=== PATIENT | female | born 1995 | race Caucasian/White ===

== ENCOUNTER → 2017-04-27 | Outpatient (REF) | payer OTHER ==
[~2017-04-27] MED LIST: LORA-1455 PO
[2017-04-27 19:13] LABS: PLATELET COUNT, AUTOMATED 180 K/uL (150-450)
== END ==
PROVIDERS: ATTEND Nurse Practitioner Family
DX: R10.9 Unspecified abdominal pain (principal)
CPT/HCPCS: 82040; 82247; 82310; 82374; 82435; 82565; 82947; 84075; 84132; 84155; 84295; 84450; 84460; 84520; 85025

== ENCOUNTER 2017-05-02 10:57 | Emergency (ER) | payer OTHER ==
[~2017-05-02] VITALS: Ht 165.1 cm; Wt 59.0 kg
--- NOTE | 2017-05-02 10:59 | ER Report ---
History and Physical Time Seen By MD: 10:59 Hx. of Stated Complaint: Right lower quadrant pain HPI/ROS 21-year-old female sent here from urgent care has been seen 3 times in the last week at urgent care with abdominal pain it started as generalized is now migrated to right lower quadrant she has low-grade temperature is nauseated anorexia pain rated as 6 on a 0-10 scale Remainder of the 14 system rev: Yes Allergies: Coded Allergies: No Known Drug Allergies (Unverified , 05/02/17) Home Meds Active Scripts Ondansetron (ZOFRAN ODT) 4 Mg Tab.rapdis, 4 MG PO Q6H Y for NAUSEA/VOMITING, # 20 TAB.DAYO Prov:MILES NORRIS APRN-C 05/02/17 Hydrocodone Bit/Acetaminophen (NORCO 5-325 TABLET) 1 Each Tablet, 1 EACH PO Q4- 6H Y for PAIN, #30 TAB Prov:MILES NORRIS APRN-[place] 05/02/17 Ciprofloxacin Hcl (CIPROFLOXACIN HCL) 500 Mg Tablet, 500 MG PO Q12H, #6 TAB Prov:MILES NORRIS APRN-C 05/02/17 Reported Medications Omeprazole (OMEPRAZOLE) 20 Mg Capsule.dr, 1 CAP PO QDAY, CAP 05/02/17 Fluoxetine Hcl (FLUOXETINE HCL) 20 Mg Capsule, 20 MG PO QDAY, CAPSULE 05/02/17 [ Control] No Conflict Check 05/02/17 Past Medical/Surgical History Depression, anxiety, is sexually active is on oral control Hx Substance Use Disorder: No Hx Alcohol Use: Yes Family History of: Other Constitutional Vital Sign - Last 24 Hours 05/02/17 05/02/17 05/02/17 05/02/17 11:00 11:07 11:27 11:30 Temp 98.2 Pulse 69 66 Resp 16 B/P (MAP) 134/83 134/83 (100) 128/72 (90) Pulse Ox 97 98 O2 Delivery Room Air 05/02/17 05/02/17 05/02/17 05/02/17 11:57 12:00 12:30 12:35 Pulse 63 76 B/P (MAP) 120/73 (89) 129/79 (96) Pulse Ox 95 99 05/02/17 05/02/17 05/02/17 05/02/17 12:55 13:00 13:15 14:30 Pulse 63 64 B/P (MAP) 140/82 (101) 125/80 (95) Pulse Ox 96 96 05/02/17 05/02/17 05/02/17 05/02/17 15:00 15:30 15:35 15:40 Pulse 59 58 68 B/P (MAP) 124/80 (95) 129/76 (93) Pulse Ox 95 92 96 05/02/17 05/02/17 05/02/17 05/02/17 15:45 15:50 15:55 16:00 Pulse 71 84 66 89 B/P (MAP) 135/83 (100) Pulse Ox 97 97 94 97 Intake and Output 05/02/17 05/02/17 05/03/17 15:00 23:00 07:00 Intake Total 1000 ml Balance 1000 ml Physical Exam 21-year-old female alert and oriented mild distress HEENT has normocephalic/ atraumatic tympanic membranes are non-reddened throat is non-reddened neck is supple no JVD heart rate is regular no murmurs rubs or gallops lungs clear to auscultation abdomen is soft she has point tenderness right lower quadrant bowel sounds are active in all quadrants Medical Decision Making Data Points Result Diagram: 05/02/17 1115 05/02/17 1115 Laboratory Hematology Test 05/02/17 11:02 05/02/17 11:15 Urine Color Yellow Urine Clarity Slightly-cloudy Urine pH 5.0 pH (4.8-9.5) Urine Specific [place] 1.028 Urine Protein Negative mg/dL (NEGATIVE) Urine Glucose (UA) Negative mg/dL (NEGATIVE) Urine Ketones Negative mg/dL (NEGATIVE) Urine Blood Negative (NEGATIVE) Urine Nitrite Negative (NEGATIVE) Urine Bilirubin Negative (NEGATIVE) Urine Urobilinogen 4.0 mg/dL (0.2-1.9) Urine Leukocyte Esterase Small (NEGATIVE) Urine RBC 1 /HPF (0-2/HPF) Urine WBC 3 /HPF (0-5/HPF) Urine Squamous Epithelial Cells Many /LPF (</=FEW) Urine Bacteria Few /HPF (NONE-FEW) Urine Mucus Few /HPF (NONE-FEW) Red Blood Count 5.00 M/uL (4.17-5.56) Mean Corpuscular Volume 82.9 fL (80.0-96.0) Mean Corpuscular Hemoglobin 28.5 pg (26.0-33.0) Mean Corpuscular Hemoglobin Concent 34.3 g/dL (32.0-36.0) Red Cell Distribution Width 12.9 % (11.5-14.5) Mean Platelet Volume 10.6 fL (7.2-11.1) Neutrophils (%) (Auto) 64.1 % (39.4-72.5) Lymphocytes (%) (Auto) 27.0 % (17.6-49.6) Monocytes (%) (Auto) 7.1 % (4.1-12.4) Eosinophils (%) (Auto) 0.9 % (0.4-6.7) Basophils (%) (Auto) 0.9 % (0.3-1.4) Nucleated RBC Relative Count (auto) 0.0 /100WBC Neutrophils # (Auto) 3.6 K/uL (2.0-7.4) Lymphocytes # (Auto) 1.5 K/uL (1.3-3.6) Monocytes # (Auto) 0.4 K/uL (0.3-1.0) Eosinophils # (Auto) 0.0 K/uL (0.0-0.5) Basophils # (Auto) 0.0 K/uL (0.0-0.1) Nucleated RBC Absolute Count (auto) 0.00 K/uL Peripheral Blood Smear No Y/N Sodium Level 137 mmol/L (137-145) Potassium Level 4.2 mmol/L (3.5-5.0) Chloride Level 104 mmol/L (98-107) Carbon Dioxide Level 20 mmol/L (22-31) Blood Urea Nitrogen 10 mg/dl (7-18) Creatinine 1.00 mg/dl (0.52-1.04) Glomerular Filtration Rate Calc > 60.0 Random Glucose 76 mg/dl (75-110) Lactate 1.3 mmol/L (0.7-2.1) Calcium Level 9.5 mg/dl (8.4-10.2) Total Bilirubin 0.4 mg/dl (0.2-1.3) Aspartate Amino Transf (AST/SGOT) 19 U/L (0-35) Alanine Aminotransferase (ALT/SGPT) 28 U/L (0-56) Alkaline Phosphatase 69 U/L (0-126) Total Protein 7.5 gm/dl (6.3-8.2) Albumin 4.4 g/dl (3.5-5.0) Amylase Level 68 U/L (0-110) Lipase 214 U/L (23-300) Human Chorionic Gonadotropin, Qual Negative (NEGATIVE) Chemistry Test 05/02/17 11:02 05/02/17 11:15 Urine Color Yellow Urine Clarity Slightly-cloudy Urine pH 5.0 pH (4.8-9.5) Urine Specific [place] 1.028 Urine Protein Negative mg/dL (NEGATIVE) Urine Glucose (UA) Negative mg/dL (NEGATIVE) Urine Ketones Negative mg/dL (NEGATIVE) Urine Blood Negative (NEGATIVE) Urine Nitrite Negative (NEGATIVE) Urine Bilirubin Negative (NEGATIVE) Urine Urobilinogen 4.0 mg/dL (0.2-1.9) Urine Leukocyte Esterase Small (NEGATIVE) Urine RBC 1 /HPF (0-2/HPF) Urine WBC 3 /HPF (0-5/HPF) Urine Squamous Epithelial Cells Many /LPF (</=FEW) Urine Bacteria Few /HPF (NONE-FEW) Urine Mucus Few /HPF (NONE-FEW) White Blood Count 5.6 k/uL (4.5-11.0) Red Blood Count 5.00 M/uL (4.17-5.56) Hemoglobin 14.2 g/dL (12.0-16.0) Hematocrit 41.5 % (34.0-47.0) Mean Corpuscular Volume 82.9 fL (80.0-96.0) Mean Corpuscular Hemoglobin 28.5 pg (26.0-33.0) Mean Corpuscular Hemoglobin Concent 34.3 g/dL (32.0-36.0) Red Cell Distribution Width 12.9 % (11.5-14.5) Platelet Count 180 K/uL (150-450) Mean Platelet Volume 10.6 fL (7.2-11.1) Neutrophils (%) (Auto) 64.1 % (39.4-72.5) Lymphocytes (%) (Auto) 27.0 % (17.6-49.6) Monocytes (%) (Auto) 7.1 % (4.1-12.4) Eosinophils (%) (Auto) 0.9 % (0.4-6.7) Basophils (%) (Auto) 0.9 % (0.3-1.4) Nucleated RBC Relative Count (auto) 0.0 /100WBC Neutrophils # (Auto) 3.6 K/uL (2.0-7.4) Lymphocytes # (Auto) 1.5 K/uL (1.3-3.6) Monocytes # (Auto) 0.4 K/uL (0.3-1.0) Eosinophils # (Auto) 0.0 K/uL (0.0-0.5) Basophils # (Auto) 0.0 K/uL (0.0-0.1) Nucleated RBC Absolute Count (auto) 0.00 K/uL Peripheral Blood Smear No Y/N Glomerular Filtration Rate Calc > 60.0 Lactate 1.3 mmol/L (0.7-2.1) Calcium Level 9.5 mg/dl (8.4-10.2) Total Bilirubin 0.4 mg/dl (0.2-1.3) Aspartate Amino Transf (AST/SGOT) 19 U/L (0-35) Alanine Aminotransferase (ALT/SGPT) 28 U/L (0-56) Alkaline Phosphatase 69 U/L (0-126) Total Protein 7.5 gm/dl (6.3-8.2) Albumin 4.4 g/dl (3.5-5.0) Amylase Level 68 U/L (0-110) Lipase 214 U/L (23-300) Human Chorionic Gonadotropin, Qual Negative (NEGATIVE) Urinalysis Test 05/02/17 11:02 Urine Color Yellow Urine Clarity Slightly-cloudy Urine pH 5.0 pH (4.8-9.5) Urine Specific [place] 1.028 Urine Protein Negative mg/dL (NEGATIVE) Urine Glucose (UA) Negative mg/dL (NEGATIVE) Urine Ketones Negative mg/dL (NEGATIVE) Urine Blood Negative (NEGATIVE) Urine Nitrite Negative (NEGATIVE) Urine Bilirubin Negative (NEGATIVE) Urine Urobilinogen 4.0 mg/dL (0.2-1.9) Urine Leukocyte Esterase Small (NEGATIVE) Urine RBC 1 /HPF (0-2/HPF) Urine WBC 3 /HPF (0-5/HPF) Urine Squamous Epithelial Cells Many /LPF (</=FEW) Urine Bacteria Few /HPF (NONE-FEW) Urine Mucus Few /HPF (NONE-FEW) Microbiology Microbiology Date/Time Source Procedure Growth Status 05/02/17 15:26 Vaginal Gram Stain - Final Resulted 05/02/17 15:26 Vaginal Genital Culture Pending Resulted 05/02/17 15:26 Pelvic Wet Prep - Final Complete ED Course/Re-evaluation Clinical Indication for ER IV: Hydration ED Course Negative CT abdomen and pelvis pelvic ultrasound showed a small amount of free fluid good blood flow to both ovaries pelvic exam she had some right adnexal tenderness small amount of white discharge pelvic cultures are pending we'll treat her for cystitis with Cipro 3 days follow-up closely with OB physician for culture report. return for worsening of symptoms Re-evaluation Pain is better Procedure pelvic exam done with retail department manager in room, small amount of white discharge, right adenexal tenderness Decision to Disposition Date: May 02, 2017 Decision to Disposition Time: 16:00 Depart Departure Latest Vital Signs Vital Signs Date Time Temp Pulse Resp B/P (MAP) Pulse Ox O2 Delivery O2 Flow Rate FiO2 05/02/17 16:00 89 135/83 (100) 97 05/02/17 11:00 98.2 16 Room Air Impression: Primary Impression: Abdominal pain Additional Impression: Cystitis Condition: Improved Disposition: HOME OR SELF-CARE Referrals: [facility] 1 Day New Scripts Ondansetron (ZOFRAN ODT) 4 Mg Tab.rapdis 4 MG PO Q6H Y for NAUSEA/VOMITING, #20 TAB.DAYO Prov: MILES NORRIS 05/02/17 Hydrocodone Bit/Acetaminophen (NORCO 5-325 TABLET) 1 Each Tablet 1 EACH PO Q4-6H Y for PAIN, #30 TAB Prov: MILES NORRIS 05/02/17 Ciprofloxacin Hcl (CIPROFLOXACIN HCL) 500 Mg Tablet 500 MG PO Q12H, #6 TAB Prov: MILES NORRIS 05/02/17 Patient Instructions: Acute Abdominal Pain (ED), Urinary Tract Infection in Women (ED) Additional Instructions: Follow-up with OB doctors in one to 2 days for culture reports you will have Cipro twice a day for 3 days only for cystitis, push fluids, return for increasing pain fever or not tolerating it at home, [place] for pain as directed, Zofran for nausea as directed Problem Qualifiers MILES NORRIS May 02, 2017 10:59
[2017-05-02] MEDS ORDERED: NS(*) 0.9% 1000 ML BAG 1,000 ML IV ONE (11:01)
[2017-05-02] MEDS ORDERED: fentaNYL CITR 100 MCG/2 ML AMP IVP ONE (11:05)
[2017-05-02] MEDS ORDERED: BIRTH CONTROL (11:12)
[2017-05-02] MEDS ORDERED: FLUO-177 PO (11:12)
[2017-05-02] MEDS ORDERED: OMEP-125 PO (11:12)
[2017-05-02] MEDS ORDERED: ONDANSETRON 4 MG/2 ML VIAL IVP ONE (11:30)
[2017-05-02 11:41] LABS: PLATELET COUNT, AUTOMATED 180 K/uL (150-450)
[2017-05-02] MEDS ORDERED: IOPAMIDOL 76% 75 ML INFUS BTL 75 ML ONE (12:15)
--- NOTE | 2017-05-02 12:56 | RADIOLOGY IMAGING REPORT ---
[place]AC[place] [facility] [place] NAME: Kirk Hanks : 1995 MR: [id number] V: [id number] EXAM DATE: ORDERING PHYSICIAN: MILES NORRIS TECHNOLOGIST[place] [facility] [place] : 1995 Visit/Account:[id number] Date of Sevice: 05/02/2017 EXAMINATION: Abdomen and pelvis CT with contrast HISTORY: Right lower quadrant pain TECHNIQUE: CT was performed through the abdomen and pelvis following injection of iodinated intrave nous contrast. Sagittal and coronal MPR reformatted images were generated. 75 mL isovue 370 injected . One of the following dose optimization techniques was utilized in the performance of this exam: autom ated exposure control; adjustment of the mA and/or kV according to patient size; or use of iterative reconstruction technique. Specific details can be referenced in the facility's radiology CT exam ope rational policy. COMPARISON: None. FINDINGS: Lower chest: Normal. Spleen: Normal. Adrenal glands: Normal. Pancreas: Normal. Kidneys: Normal. Gallbladder: Normal. Liver: Periportal edema noted of doubtful significance. Vessels: Normal. Lymph node assessment: Normal. Bowel including small bowel, colon and appendix: Normal stomach, normal small bowel. Normal appendix. Normal colon. Peritoneum / retroperitoneum / mesentery: Normal. Pelvic structures: Normal bladder, normal uterus, normal rectum. Trace pelvic fluid. No enlarged l ymph nodes. Body wall: Normal. Musculoskeletal: No fracture or osseous destruction. IMPRESSION: 1. Normal appendix. 2. Trace pelvic fluid. 3. Otherwise unremarkable abdomen and pelvis CT. Report Dictated By: Wang Hurtado MD at 05/02/2017 12:46 PM Report E-Signed By: Wang Hurtado MD at 05/02/2017 12:51 PM WSN:[id number]
--- NOTE | 2017-05-02 14:38 | RADIOLOGY IMAGING REPORT ---
FACILITY: [facility] - [place] PATIENT NAME: Kirk Hanks : 1995 MR: [id number] V: [id number] EXAM DATE: ORDERING PHYSICIAN: MILES NORRIS TECHNOLOGIST: Location: [facility] Patient: Kirk Hanks : 1995 Visit/Account:[id number] Date of Sevice: 05/02/2017 EXAMINATION: Transabdominal and transvaginal pelvic ultrasound with duplex Doppler evaluation. HISTORY: Right lower quadrant abdominal pain. Trace pelvic free fluid. COMPARISON: CT abdomen/pelvis performed today. LMP: 04/18/2017. Findings: Normal uterine size and morphology. The uterus is anteverted in position and measures 5.9 x 2.7 x 3. 1 cm. No focal uterine mass. The endometrium is homogeneous in appearance and measures 3 mm in double wall thickness. Normal size and appearance of both ovaries, measuring 2.6 x 1.6 x 1.9 cm on the right and 2.4 x 1.7 x 1.7 cm on the left. Both ovaries contain small follicles, without any large ovarian cyst. Both ovari es demonstrate normal vascularity with Doppler evaluation. No abnormal adnexal masses. Trace amount of free fluid in the pelvis. IMPRESSION: Normal pelvic ultrasound. Trace amount of free fluid along the cul-de-sac is within norm al limits for physiologic free fluid. Report Dictated By: Christopher Romero MD at 05/02/2017 2:30 PM Report E-Signed By: Christopher Romero MD at 05/02/2017 2:34 PM WSN:[id number]
[2017-05-02] MEDS ORDERED: HYDR-4309 PO (15:48)
[2017-05-02] MEDS ORDERED: CIPR-214 PO (15:48)
[2017-05-02] MEDS ORDERED: ONDA4TAB PO (15:48)
[2017-05-02 16:00] VITALS: BP 135/83
== END 2017-05-02 16:00 | disposition home or self-care (01) ==
LOC: ER 11:06
DX: N30.90 Cystitis, unspecified without hematuria (principal)
CPT/HCPCS: 74177; 76856; 81001; 82150; 83605; 83690; 84703; 85025; 87070; 87088; 87205; 87210; 87491; 87591; 96361; 96374; 99284; J2405; J7030; Q9967; 82040; 82247; 82310; 82374; 82435; 82565; 82947; 84075; 84132; 84155; 84295; 84450; 84460; 84520